=== PATIENT | female | born 1980 | race Caucasian/White ===

== ENCOUNTER 2018-02-06 05:38 | Day surgery (SDC) | payer OTHER ==
[2018-02-06] MEDS ORDERED: CLINDAMYCIN 900 MG/50 ML D5W IVPB IVPB (07:00)
[2018-02-06] MEDS ORDERED: ROCURONIUM 50 MG INJ ×2 (07:00→08:05)
[2018-02-06] MEDS ORDERED: LIDOCAINE 2% (SDV) 5 ML INJ (07:00)
[2018-02-06] MEDS ORDERED: FENTAnyl 50 MCG/ML VIAL IV ×2 (08:00)
[2018-02-06] MEDS ORDERED: HYDROmorphONE 1 MG/5 ML IV SYRINGE IV ×2 (08:00)
[2018-02-06] MEDS ORDERED: morphine (1 MG/ML) 10ML SYRINGE IV ×2 (08:00)
[2018-02-06] MEDS ORDERED: ONDANSETRON 4 MG INJ IV (08:00)
[2018-02-06] MEDS ORDERED: ALBUTEROL 0.083% (NEB) 2.5 MG/3 ML AMP HHN (08:00)
[2018-02-06] MEDS ORDERED: LABETALOL HCL 20MG INJ IV (08:00)
[2018-02-06] MEDS ORDERED: DIPHENHYDRAMINE 50 MG INJ IV (08:00)
[2018-02-06] MEDS ORDERED: MEPERIDINE 25 MG INJ IV (08:00)
[2018-02-06] MEDS ORDERED: OXYCODONE/ACETAMINOPHEN (5/325) TAB PO ×2 (08:00)
[2018-02-06] MEDS ORDERED: DEXAMETHASONE 4 MG/ML 1 ML INJ ×2 (08:05→08:23)
[2018-02-06] MEDS ORDERED: ONDANSETRON 4 MG INJ (08:05)
[2018-02-06] MEDS ORDERED: CEFAZOLIN 1 GM INJ (08:05)
[2018-02-06] MEDS ORDERED: PROPOFOL 40 ML (08:05)
[2018-02-06] MEDS ORDERED: MIDAZOLAM 1 MG/ML 2 ML INJ (08:05)
[2018-02-06] MEDS ORDERED: FENTAnyl 50 MCG/ML VIAL (08:05)
[2018-02-06] MEDS ORDERED: KETOROLAC 30 MG INJ (08:22)
[2018-02-06] MEDS ORDERED: FAMOTIDINE 20 MG INJ (08:22)
[2018-02-06] MEDS: BUPIVACAINE 0.25%/EPI (SDV) 30 ML INJ (08:33)
[2018-02-06] MEDS ORDERED: ACETAMINOPHEN 1000MG/100ML IV 100 ML (08:35)
[2018-02-06] MEDS ORDERED: NEOSTIGMINE 3 MG/3 ML SYRINGE (08:46)
[2018-02-06] MEDS ORDERED: GLYCOPYRROLATE 0.4 MG INJ (08:46)
[2018-02-06] MEDS ORDERED: CLINDAMYCIN 900 MG/D5W (PMX) 50 ML IVPB (09:30)
[2018-02-06] MEDS ORDERED: LACTATED RINGER'S 1,000 ML IV* (09:30)
== END 2018-02-06 11:30 | disposition home or self-care (01) ==
LOC: SDS 05:38
DX: Z30.2 Encounter for sterilization (principal)
CPT/HCPCS: 58565; 71045; 93005